=== PATIENT | female | born 1985 ===

== ENCOUNTER 2019-12-22 02:45 | Inpatient (IN) | payer OTHER ==
[~2019-12-22] VITALS: Ht 167.6 cm; Wt 80.9 kg
[~2019-12-22 02:45] MED LIST: CETI5 PO; Verotin-Gr Cap1 EACH PO
[2019-12-22] MEDS ORDERED: Vitamin D2000 UNIT (03:51)
[2019-12-22 04:04] LABS: BASOPHILS ABSOLUTE AUTO 0.04 K/mm3 (0.00-0.23); BASOPHILS PERCENT AUTO 0 % (0-2); EOSINOPHILS ABSOLUTE AUTO 0.11 K/mm3 (0.00-0.68); EOSINOPHILS PERCENT AUTO 1 % (0-6); Hematocrit 34.2 % (33.0-51.0); IMMATURE GRAN ABSOLUTE AUTO 0.12 K/mm3 (0.00-0.10); IMMATURE GRAN PERCENT AUTO 1 % (0-1); LYMPHOCYTES ABSOLUTE AUTO 1.95 K/mm3 (0.84-5.20); LYMPHOCYTES PERCENT AUTO 16 % (21-46); MONOCYTES ABSOLUTE AUTO 0.98 K/mm3 (0.16-1.47); MONOCYTES PERCENT AUTO 8 % (4-13); Mean Corpuscular HGB 28.1 pg (26.0-34.0); Mean Corpuscular HGB Conc 32.2 g/dL (31.5-36.5); Mean Corpuscular Volume 87 fL (80-100); Mean Platelet Volume 9.2 fL (9.1-12.4); NEUTROPHILS PERCENT AUTO 73 % (41-73); Platelet Count 298 K/mm3 (150-400); RDW Coefficient Variation 12.3 % (11.7-14.2); RDW Standard Deviation 39.4 fL (35.1-46.3); Red Blood Cell Count 3.92 M/mm3 (3.80-5.20)
--- NOTE | 2019-12-22 10:15 | NUR ---
RN ROUNDED TO HELP WITH . EXPERIENCED MOM. NB 35 5/7 WEEKS. RN TALKED W/ MOM ABOUT EXPECTATIONS OF AT THIS GESTATION. ATTEMPTED TO HELP LATCH NB, NB WOULD NOT LATCH, HAD FED FAIR AFTER . INSTRUCT/DEMO WIDENING LATCH, CORRECT POSITIONING, AND NIPPLE SHAPE AFTER FEEDS. INSTRUCT/REVIEWED BOOKLET AND BROCHURE ON WHAT TO EXPECT DURING THE FIRST WEEK WITH AND CHANGES IN NB.
--- NOTE | 2019-12-22 11:15 | NUR ---
REPORT TO HECTOR TAFOYA RN
--- NOTE | 2019-12-22 17:47 | NUR ---
Assumed care from Consuelo Rivera RN. Pt resting in bed, just finished w/dinner. Denies needs at this time.
[2019-12-23 05:16] LABS: BASOPHILS ABSOLUTE AUTO 0.03 K/mm3 (0.00-0.23); BASOPHILS PERCENT AUTO 0 % (0-2); EOSINOPHILS ABSOLUTE AUTO 0.02 K/mm3 (0.00-0.68); EOSINOPHILS PERCENT AUTO 0 % (0-6); Hematocrit 31.1 % (33.0-51.0); Hemoglobin 9.9 g/dL (11.5-16.0); IMMATURE GRAN ABSOLUTE AUTO 0.26 K/mm3 (0.00-0.10); IMMATURE GRAN PERCENT AUTO 1 % (0-1); LYMPHOCYTES ABSOLUTE AUTO 2.27 K/mm3 (0.84-5.20); LYMPHOCYTES PERCENT AUTO 12 % (21-46); MONOCYTES ABSOLUTE AUTO 1.42 K/mm3 (0.16-1.47); MONOCYTES PERCENT AUTO 7 % (4-13); Mean Corpuscular HGB 28.4 pg (26.0-34.0); Mean Corpuscular HGB Conc 31.8 g/dL (31.5-36.5); Mean Corpuscular Volume 89 fL (80-100); Mean Platelet Volume 9.1 fL (9.1-12.4); NEUTROPHILS PERCENT AUTO 80 % (41-73); Platelet Count 273 K/mm3 (150-400); RDW Coefficient Variation 12.5 % (11.7-14.2); RDW Standard Deviation 40.4 fL (35.1-46.3); Red Blood Cell Count 3.49 M/mm3 (3.80-5.20)
--- NOTE | 2019-12-23 09:34 | NUR ---
RN ROUNDED TO HELP W/ . INSTRUCT/DEMO SKIN TO SKIN, WIDENING LATCH, CORRECT POSITIONING AND NIPPLE SHAPE AFTER FEEDS. NB LATCHED AND FEEDING WELL AT THIS TIME. INSTRUCTED ON SNS AT BREAST AND FINGER FEEDING IF NEEDED BASED ON NB'S WEIGHT. PARENT VERBALIZED UNDERSTANDING AND DENY ANY FURTHER QUESTIONS OR CONCERNS.
== END 2019-12-23 14:10 | disposition home or self-care (01) | DRG 807 ==
LOC: OBS 02:45 → BC 02:45 → OBS 03:42 → BC 03:44
PROVIDERS: Advanced Practice Midwife; ADMIT Obstetrics & Gynecology
PROC: 10E0XZZ Delivery of Products of Conception, External Approach (ICD-10-PCS; principal; 2019-12-22)
PROC: 3E0R3BZ Introduction of Anesthetic Agent into Spinal Canal, Percutaneous Approach (ICD-10-PCS; 2019-12-22)
PROC: 0HQ9XZZ Repair Perineum Skin, External Approach (ICD-10-PCS; 2019-12-22)
DX: O60.14X0 Preterm labor third trimester with preterm delivery third trimester, not applicable or unspecified (principal); Z37.0 Single live birth; O76 Abnormality in fetal heart rate and rhythm complicating labor and delivery; O70.0 First degree perineal laceration during delivery; Z3A.35 35 weeks gestation of pregnancy
CPT/HCPCS: 36415; 51702; 85025; 86850; 86900; 86901; 87081; 87653; J0290; J0702; J1885; J2001; J2590; J3010; J7120